=== PATIENT | female | born 1940 | race Caucasian/White ===

== ENCOUNTER 2017-07-14 11:30 | Inpatient (IN) | payer MEDICARE, MEDICAID ==
[2017-07-25] MEDS ORDERED: Buffered Lidocaine 0.9% SYRIN* 5 ML/SYR SYRINGE INTRADERM ONE (10:56)
[2017-07-26] MEDS ORDERED: Famotidine IV* 10 MG/ML 2 ML (20 mg) IV ONE (06:00)
[2017-07-26] MEDS ORDERED: Dexamethasone IV* 4 MG/ML 1 ML (4 MG) IV SLOW PU ONE (06:00)
[2017-07-26] MEDS ORDERED: Famotidine IV* 10 MG/ML 2 ML (20 mg) ONE (12:58)
[2017-07-26] MEDS ORDERED: Dexamethasone IV* 4 MG/ML 1 ML (4 MG) ONE (12:58)
[2017-07-26] MEDS ORDERED: ceFAZolin 2 GM PREMIX (*) 2 GM/50 ML BAG IVPB ONE (12:58)
[2017-07-26] MEDS ORDERED: Buffered Lidocaine 0.9% SYRIN* 5 ML/SYR SYRINGE ONE (12:58)
[2017-07-26] MEDS ORDERED: KETAMINE HCL* 50 MG/ML 10 ML VIAL ONE (16:36)
[2017-07-26] MEDS ORDERED: Midazolam* 1 MG/ML 10 ML VIAL (10 MG) ONE (16:37)
[2017-07-26] MEDS ORDERED: Morphine PF AMP (0.5MG/ML)* 5 MG/10 ML AMP ONE (16:37)
[2017-07-26] MEDS ORDERED: Propofol* 10 MG/ML 20 ML BTL IV PUSH ONE (16:47)
[2017-07-26] MEDS ORDERED: Ondansetron INJ* 2 MG/ML VIAL ONE (16:47)
[2017-07-26] MEDS ORDERED: Polyethylene Glycol 3350* 17 GM PACKET PO PRN (17:33)
[2017-07-26] MEDS ORDERED: Magnesium Hydroxide LIQ* 30 ML UDC PO PRN (17:33)
[2017-07-26] MEDS ORDERED: Bupivacaine 0.5% SDV PF* 10-30ML VIAL INJ ONE (18:14)
[2017-07-26] MEDS ORDERED: Lidocaine 2% PF * 5 ML VIAL ONE (18:25)
[2017-07-26] MEDS ORDERED: Naloxone* 0.4 MG/ML 1 ML VIAL IV PRN ×2 (18:27)
[2017-07-26] MEDS ORDERED: DiMENhydriNATE IV* 50 MG/ML VIAL IV PUSH PRN (18:27)
[2017-07-26] MEDS ORDERED: Ondansetron INJ* 2 MG/ML VIAL IV PRN (18:27)
[2017-07-26] MEDS ORDERED: Nalbuphine* 20 MG/ML 1 ML VIAL IV PRN ×2 (18:27)
[2017-07-26] MEDS ORDERED: oxyCODONE/Acetamin 5/325 MG* TAB PO PRN (18:27)
[2017-07-26] MEDS ORDERED: Atropine 1MG/ML INJ* 1 ML VIAL ONE (18:34)
--- NOTE | 2017-07-26 19:58 | RAD ---
Indication: RIGHT total hip replacement. Comparison: July 03, 2017 Technique: Crosstable lateral RIGHT hip 1824 hours REPORT AND IMPRESSION: Test fit femur component/reamer in place. Acetabular component with fixation screw in place. No fracture evident. Soft tissue edema and emphysema.
--- NOTE | 2017-07-26 21:36 | RAD ---
Indication: Postop RIGHT hip replacement. Comparison: Intraoperative exam of the same date. Technique: Low AP pelvis and AP and stable lateral views RIGHT hip. Low AP pelvis view repeated at 2035 hours. Report: RIGHT total hip replacement in place with normal alignment. No periprosthetic fracture evident. Surrounding soft tissue edema and subcutaneous emphysema. Lateral cutaneous gris. IMPRESSION: Unremarkable immediate postop appearance of the RIGHT total hip replacement.
[2017-07-26] MEDS: Docusate CAP* 100 MG PO SCH (22:28)
[2017-07-26] MEDS: Magnesium Hydroxide LIQ* 30 ML UDC PO SCH (22:28)
[2017-07-27] MEDS: ceFAZolin 1 GM VIAL(*) 1 GM in NS 0.9% 50 ML* 50 ML IVPB SCH ×3 (01:13→17:13)
[2017-07-27] MEDS: Metoprolol Succinate XL TAB* 50 MG PO SCH ×3 (01:16→21:32)
[2017-07-27] MEDS: Latanoprost 0.005%* 2.5 ml BTL BOTH EYES SCH ×2 (01:17→17:14)
[2017-07-27] MEDS: Dorzolamide/Timolol OPTH (NF) 10 ML BOT BOTH EYES SCH ×2 (01:17→07:58)
[2017-07-27] MEDS: Potassium Chlor TAB* 20 MEQ TAB.ER PO SCH ×3 (01:17→21:30)
[2017-07-27] MEDS: Cyanocobalamin TAB* 500 MCG PO SCH ×2 (01:19→17:10)
[2017-07-27 05:20] LABS: Hematocrit 27 % (35-47); Hemoglobin 9.3 g/dl (12.0-16.0); Mean Platelet Volume 9 um3 (7.4-10.4); Platelet Count 163 10^3/ul (150-450)
[2017-07-27 05:27] LABS: INR 1.19 (0.77-1.02)
[2017-07-27 05:52] LABS: EGFR Non-African American 42.7 (>60)
[2017-07-27] MEDS: Docusate CAP* 100 MG PO SCH ×2 (07:55→21:30)
[2017-07-27] MEDS: amLODIPine TAB* 5 MG PO SCH (07:55)
[2017-07-27] MEDS: Magnesium Hydroxide LIQ* 30 ML UDC PO SCH ×2 (07:56→21:30)
[2017-07-27] MEDS: Cilostazol TAB* 100 MG PO SCH ×2 (08:04→21:31)
[2017-07-27] MEDS: Multivitamins/Minerals TAB PO SCH (08:04)
[2017-07-27] MEDS ORDERED: Ondansetron INJ* 2 MG/ML VIAL IV PRN (09:00)
[2017-07-27] MEDS ORDERED: Morphine INJ* 4 MG/ML 1 ML CARPUJECT IV PRN (09:00)
[2017-07-27] MEDS ORDERED: diPHENhydraMINE IV* 50 MG/ML 1 ml VIAL (BENADRYL) IV PRN (09:00)
[2017-07-27] MEDS ORDERED: Ondansetron TAB* 4 MG PO PRN (09:00)
[2017-07-27] MEDS ORDERED: oxyCODONE TAB* 5 MG TAB PO PRN (09:00)
[2017-07-27] MEDS: oxyCODONE/Acetamin 5/325 MG* TAB PO PRN ×3 (12:50→21:32)
--- NOTE | 2017-07-27 13:09 | PN ---
Progress Note - Progress Note Date of Service: 07/27/17 SOAP: Subjective: []Patient seen OOB in chair. Pain is well controlled. Denies CP, SOB, nausea. Objective: []General: Well appearing, NAD RLE: dressing cdi. DF/PF intact. DP/PT 2+ BL LE: calves supple and nontender withotu erythema, edema or palpable cords Vital Signs Temp 97.0 F 07/27/17 11:48 Pulse 68 07/27/17 11:48 Resp 16 07/27/17 12:50 BP 106/46 07/27/17 11:48 Pulse Ox 99 07/27/17 11:48 Intake & Output 07/26/17 07/27/17 07/27/17 18:59 06:59 18:59 Intake Total 50 2205 1256 Output Total 2125 Balance 50 80 1256 Weight 107 lb 6.4 oz Intake: IV Fluids 50 1855 1056 ABX - CEFAZOLIN 55 55 LR 1001 NS 50ML, Cefazolin 2G 50 lr 1800 Oral 350 200 Output: Chan 1925 Estimated Blood Loss 200 Laboratory Last Values Hgb 9.3 g/dl (12.0-16.0) L 07/27/17 05:10 Hct 27 % (35-47) L 07/27/17 05:10 Plt Count 163 10^3/ul (150-450) 07/27/17 05:10 MPV 9 um3 (7.4-10.4) 07/27/17 05:10 INR (Anticoag Therapy) 1.19 (0.77-1.02) H 07/27/17 05:10 Sodium 143 mmol/L (133-145) 07/27/17 05:10 Potassium 3.6 mmol/L (3.5-5.0) 07/27/17 05:10 Chloride 118 mmol/L (101-111) H 07/27/17 05:10 Carbon Dioxide 19 mmol/L (22-32) L 07/27/17 05:10 Anion Gap 6 mmol/L (2-11) 07/27/17 05:10 BUN 20 mg/dL (6-24) 07/27/17 05:10 Creatinine 1.23 mg/dL (0.51-0.95) H 07/27/17 05:10 Est GFR ( Amer) 54.9 (>60) 07/27/17 05:10 Est GFR (Non-Af Amer) 42.7 (>60) 07/27/17 05:10 BUN/Creatinine Ratio 16.3 (8-20) 07/27/17 05:10 Glucose 174 mg/dL (70-100) H 07/27/17 05:10 Calcium 8.3 mg/dL (8.6-10.3) L 07/27/17 05:10 Assessment: []s/p right total hip arthroplasty 07/26/17, Dr Pike Plan: []WBAT PT/OT Eliquis for DVT prophylaxis <Jannet Aguilar - Last Filed: 07/27/17 13:07> - Progress Note SOAP: Subjective: Feels comfortable. Wants to go home and not to rehab, but seems to be willing to accept either. Acknowledges that she was hallucinating in the PACU with visions of dark, threatening things hanging from the ceiling. Objective: NAD. Comfortable appearing. RLE - dressing intact - NVID xrays- components well placed, no fracture Laboratory Tests 07/27/17 07/27/17 05:10 05:10 Hct 27 L Creatinine 1.23 H Assessment: POD 1 R KIA Plan: - Eliquis - Pletal as per pre-op - WBAT, OOB, PT - Dispo planning - Pain control <Miguel Angel Pike - Last Filed: 07/27/17 22:35>
[2017-07-27] MEDS: Apixaban* 2.5 MG TAB PO SCH (17:10)
[2017-07-27] MEDS: Morphine INJ* 2 MG/ML 1 ML SYRINGE (TWO MG - NEW SYRINGE VERSION) IV PRN ×2 (17:30→23:11)
[2017-07-27] MEDS: Timolol 0.5% OPTH.SOL* BTL BOTH EYES SCH (21:28)
[2017-07-27] MEDS: Dorzolamide 2% OPTH (NF) 10 ML BTL BOTH EYES SCH (21:29)
[2017-07-28] MEDS: oxyCODONE/Acetamin 5/325 MG* TAB PO PRN ×6 (01:33→22:37)
[2017-07-28 06:00] LABS: Hematocrit 23 % (35-47); Hemoglobin 7.6 g/dl (12.0-16.0); Mean Platelet Volume 9 um3 (7.4-10.4); Platelet Count 121 10^3/ul (150-450)
[2017-07-28 06:18] LABS: INR 1.26 (0.77-1.02)
--- NOTE | 2017-07-28 10:39 | PN ---
Progress Note - Progress Note Date of Service: 07/28/17 SOAP: Subjective: POD #2 Right KIA. Doing ok, c/o pain. Denies calf pain, CP/SOB Objective: Vitals: Temp Pulse Resp BP Pulse Ox 98.9 F 84 16 139/63 99 07/28/17 07:48 07/28/17 07:48 07/28/17 09:58 07/28/17 07:48 07/28/17 07:48 Gen: A&Ox3, NAD at rest Right Hip: Incision C/D/I, minimal ecchymosis and edema, no surrounding erythema. Thigh soft, mild ttp. +f/e at knee, ankle and MTPs, N/V intact Labs: Laboratory Results - last 24 hr 07/28/18 07/28/17 05:34 05:34 Hgb 7.6 L Hct 23 L Plt Count 121 L MPV 9 INR (Anticoag Therapy) 1.26 H Assessment: POD #2 Right KIA Plan: Pt lives alone with no family around, PT concerned that pt is not able to go home. PMRU consult placed for short term rehab Cont pain medication Cont PT/OT Cont Eliquis for DVT ppx
[2017-07-28] MEDS: Magnesium Hydroxide LIQ* 30 ML UDC PO SCH ×2 (10:55→22:26)
[2017-07-28] MEDS: Cilostazol TAB* 100 MG PO SCH ×2 (10:56→22:22)
[2017-07-28] MEDS: Metoprolol Succinate XL TAB* 50 MG PO SCH ×2 (10:56→22:23)
[2017-07-28] MEDS: amLODIPine TAB* 5 MG PO SCH (10:56)
[2017-07-28] MEDS: Apixaban* 2.5 MG TAB PO SCH ×2 (10:56→17:01)
[2017-07-28] MEDS: Docusate CAP* 100 MG PO SCH ×2 (10:57→22:25)
[2017-07-28] MEDS: Potassium Chlor TAB* 20 MEQ TAB.ER PO SCH ×2 (10:58→22:24)
[2017-07-28] MEDS: Multivitamins/Minerals TAB PO SCH (10:58)
[2017-07-28] MEDS: Timolol 0.5% OPTH.SOL* BTL BOTH EYES SCH ×2 (10:59→22:22)
[2017-07-28] MEDS: Dorzolamide 2% OPTH (NF) 10 ML BTL BOTH EYES SCH ×2 (11:00→22:21)
[2017-07-28] MEDS: Cyanocobalamin TAB* 500 MCG PO SCH (17:01)
[2017-07-28] MEDS: Latanoprost 0.005%* 2.5 ml BTL BOTH EYES SCH (17:02)
--- NOTE | 2017-07-28 20:26 | OP ---
OPERATIVE REPORT: DATE OF OPERATION: 07/26/17 DATE OF : 44 SURGEON: Miguel Angel Pike MD ASSISTANTS: 1. Amberly Velarde MD 2. GILDARDO Madden Due to the nature of this procedure, femoral neck fracture, subacute, early malunion in a relatively young physiologically active patient, a second attending and physician technical support assistant were required for positioning, instrumentation assistance, and closure. ANESTHESIOLOGIST: Bakari Gardner MD. ANESTHESIA: Spinal anesthesia. PRE-OP DIAGNOSIS: Right femoral neck fracture, subacute, incipient malunion. POST-OP DIAGNOSIS: Right femoral neck fracture, subacute, incipient malunion. OPERATIVE PROCEDURE: Right total hip arthroplasty for femoral neck fracture, early malunion, subacute. IV FLUIDS: 2800 cc crystalloid. ANTIBIOSIS: Ancef 2 g IV. ESTIMATED BLOOD LOSS: Less than 100 cc. URINE OUTPUT: 2000 cc. COMPLICATIONS: None. SPECIMEN: Femoral head, right. IMPLANTS: Accolade TMZF hip stem, 132 degree neck. A 32 mm plus 0 mm femoral head, ceramic, Biolox delta. Trident 0 degrees polyethylene insert 32 mm. Tritanium hemispherical cluster hole shell size 50 mm. One cancellous bone screw 6.5 mm in diameter, 20 mm in length. INDICATIONS FOR PROCEDURE: The patient is a 76-year-old woman who lives alone, who walks everywhere and does not own or operate a vehicle, and who likes to bike, who presented to my clinic office on 07/06/17, reporting a fall on , with right hip injury diagnosed the day before, on approximately 07/05/17. The patient states that on 05/04/17, she was walking in [facility]. She tripped and fell on her right hip. She had severe pain. The patient was somehow able to walk home. She was in excruciating pain while walking home. She did not have her purse and so was not able to pay for a ride home according to her. When she got home, she was in severe pain. She states she spent most of her time in bed for weeks. Getting out of bed to go to bathroom was very painful. The patient was given crutches by a neighbor and she used those. The patient reported that several weeks prior, approximately 1 week prior to her 07/06/17 clinic visit with me, she just started being able to put some weight through the right lower extremity. She stated that her pain in the right hip had improved but it still bothered her significantly with weightbearing and with range of motion. The patient had seen Dr. 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 The patient described hip pain, had x-rays obtained that showed a right femoral neck fracture and so the patient was referred to my clinic. The patient states that prior to her injury, she did not use a cane or a walker. Her automobile stopped working 10 years ago and she did not repair it or get a new one, so she walks everywhere and occasionally bicycles. She walks to stores and to all her doctors' appointments. 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 She is on Pletal. She reports an infection postoperatively after a distant past surgery, gastrointestinal. She also reports a distant past history of pulmonary emboli postoperatively, only once. No hematologic workup was known of by the patient. X-rays from June 2017, demonstrated a displaced right femoral neck fracture. Clear posterior displacement of the femoral neck and posterior apex angular deformity of the femoral neck fracture. High fracture, subcapital. Clearly not impacted but angulated and displaced. I offered the patient urgent to emergent surgery, with a direct admission to the hospital with hip arthroplasty performed that day or next day. The patient declined this. I also offered elective surgery. Given that the patient was now 2 months status post hip fracture and had already regained much of her mobility, I did not think the 48-hour window for hip fracture surgery applied. She was certainly at a decreased risk of pneumonia, bedsores, blood clots given that she was mobile, using crutches, bearing some weight through the right lower extremity. She opted for elective surgery. It should be noted that the patient actually had passive range of motion 0 to 95 degrees of flexion in the office, quite impressively, 50 degrees of external rotation but the patient could not even internal rotate to neutral. Inconsistent pain with log roll and ranges of motion. I initially consented and signed the patient out for bipolar hip hemiarthroplasty. However, given her high activity level for a 76-year-old, walking everywhere, and the newer studies that show higher happiness and functional ratings of total hip arthroplasty versus bipolar hip hemiarthroplasty , I decided to perform a total hip arthroplasty procedure. I consented the patient for that procedure. I had my colleague, Dr. Amberly Velarde, assist me as well as a physician technical support assistant. Preoperatively, I spoke with the patient about the risks and potential complications of surgery. These include bleeding, infection, nerve or blood vessel injury, blood clot, hip pain, stiffness, prosthetic dislocation, fracture , component failure. The patient opted for surgery. DESCRIPTION OF PROCEDURE: In preoperative holding, the patient signed a written consent form. Operative extremity was marked in preoperative holding. The patient was taken back to the operating room and placed on operating room table. Dr. Bakari Gardner, performed a spinal anesthetic. A Chan was placed. The patient was placed into the lateral decubitus position with the right side up. Axillary roll was placed. The patient was on a pegboard and pegs were placed. The table was placed into a small amount of Trendelenburg. The right lower extremity was prepped with chlorhexidine and then ChloraPrep. The right hip was draped. Surgical time-out was performed. A standard skin incision was made for the posterior approach to the hip. This was centered about the proximal tip of the greater tuberosity, half proximal and half distal to this, just posterior to the midline of the access to the femoral shaft. The knife blade was switched. Dissection down to the iliotibial band and the gluteus brenton fascia. This was cleared off. ITP and gluteus brenton fascia was incised. Gluteus brenton muscles were spread in the orientation of the running in their fibers. The hip was extended and internally rotated. Fascia was removed from the posterior aspect of the greater trochanter of the hip. Appropriate retractors were placed. External rotators were identified. A tagging stitch with #5 Ethibond was placed in the piriformis. Piriformis was released along with the remainder of the external rotators more inferiorly. A second tagging stitch with #5 Ethibond, figure-of- eight stitch was placed in the external rotators. The posterior capsule of the hip was then incised off the femur. A proximal posterior longitudinal cut was also made in the capsule. Two ywmpiu-eh-gnchy stitches using Ethibond #5 suture were used to tag and retract the posterior capsule. Hemostasis was achieved. Not much bleeding during the case. The right hip was dislocated. Deformity of the femoral head and neck were noted , but the fracture site was stable with clearly some amount of healing in it in a malunited position. Flexed and internally rotated the hip. Consulted our preoperative templating for this case. Preoperative templating had revealed a likely size 3.5 femoral component with a 132 degree neck, 15 mm cup and a neutral or minus neck length. We made a femoral neck cut, approximately 1 cm proximal to the lesser trochanter , as per our templating. Oscillating saw was used. A femoral head and some of neck were removed. They were sized on a back table. Retractors were then placed around the acetabulum. Exposure was excellent as the patient had a thin habitus. Labrum was removed with a deep knife. Acetabulum was reamed. No large osteophytes were present. Soft tissue pulvinar was removed. We reamed to the medial wall of the cotyloid notch. Our last reaming was to 49 mm. A wall thickness was still excellent circumferentially. A bite and stitch were excellent. We reamed with approximately 40 degrees of abduction and 25 degrees of flexion. We placed a Titanium cup, 50 mm in size, 1 mm larger than our last reaming size. Fit was excellent. It went all the way down. One screw was placed into the posterosuperior quadrant into bone. Bite of the screw and bone was middling. It was clearly placed all within bone, however. Placed a trial liner in the cup and returned to the femur. A manual reamer, canal finder was placed. Then broaches were placed, lateralizing slightly, to a progressively larger size until a broach of size 4.5. Fit appeared excellent , tight. We then trialed with a trial head and neck and liked our stability and length. Irrigation again. We then placed our final stem, Accolade, 4.5 in size, 132 neck. It should be noted that between the trialing and the placement of out final femoral prosthesis, we brought the extra imaging into the room and obtained an AP pelvis that showed the position of our implants. We were happy with the position of our implants and our length. After the final femoral implant had been placed, we trialed with a 32 head and a minus neck as well as a neutral neck. We liked more of the stability and the length of the implant with a neutral neck. We placed the final ceramic head and liner. Irrigation. We drilled 2 holes in the posterior aspect of the greater trochanter and closed our posterior capsule and then our external rotators with the tagging stitches placed earlier. Irrigation. Closure of the gluteus brenton and iliotibial band fascia with gqbusc-[id number]-pahen stitches using Vicryl 0 suture. Closure of the subcutaneous tissue with buried simple stitches using Vicryl 2-0 suture. Closure of the skin with gris. Xeroform, 4x4's, ABD's, foam tape. Abduction pillow placed. The patient was converted to the supine position and transferred to the PACU. DISPOSITION: The patient was admitted postoperatively for pain control, physical therapy, advance diet as tolerated and medical management. The patient was to receive Eliquis 2.5 mg p.o. b.i.d. starting the morning following surgery. IV and oral pain medications. Posterior total hip precautions. Weightbearing as tolerated and out of bed with physical therapy. The patient will follow up with me in clinic approximately 14 days postoperatively for wound check and x-rays. The patient obtained x-rays in the PACU which showed no fracture, excellent length and position of hardware. [id number]/[facility] #: [id number] RIZWANA
[2017-07-29] MEDS: oxyCODONE/Acetamin 5/325 MG* TAB PO PRN ×4 (04:20→21:12)
[2017-07-29 06:28] LABS: Hematocrit 23 % (35-47); Hemoglobin 7.8 g/dl (12.0-16.0); Mean Platelet Volume 9 um3 (7.4-10.4); Platelet Count 127 10^3/ul (150-450)
[2017-07-29 06:32] LABS: INR 1.31 (0.77-1.02)
[2017-07-29] MEDS: Magnesium Hydroxide LIQ* 30 ML UDC PO SCH ×2 (09:16→21:15)
[2017-07-29] MEDS: Dorzolamide 2% OPTH (NF) 10 ML BTL BOTH EYES SCH ×2 (09:17→21:19)
[2017-07-29] MEDS: Timolol 0.5% OPTH.SOL* BTL BOTH EYES SCH ×2 (09:18→21:18)
[2017-07-29] MEDS: Cilostazol TAB* 100 MG PO SCH ×2 (09:19→21:11)
[2017-07-29] MEDS: Metoprolol Succinate XL TAB* 50 MG PO SCH ×2 (09:19→21:11)
[2017-07-29] MEDS: amLODIPine TAB* 5 MG PO SCH (09:19)
[2017-07-29] MEDS: Potassium Chlor TAB* 20 MEQ TAB.ER PO SCH ×2 (09:20→21:12)
[2017-07-29] MEDS: Apixaban* 2.5 MG TAB PO SCH ×2 (09:20→16:58)
[2017-07-29] MEDS: Docusate CAP* 100 MG PO SCH ×2 (09:20→21:12)
[2017-07-29] MEDS: Multivitamins/Minerals TAB PO SCH (09:20)
--- NOTE | 2017-07-29 11:17 | PN ---
Progress Note - Progress Note Date of Service: 07/29/17 SOAP: Subjective: Pain decreased. She is more comfortable with going to rehab. No bowel movement yet. (History of loose stools, "short bowel syndrome") Objective: NAD Abdomen - soft, though slightly distended per patient, non-tender RLE - inc c/d/i - NVID Selected Entries 07/29/17 07:34 Temperature 98.7 F Pulse Rate 75 Respiratory 16 Rate Blood Pressure 117/52 (mmHg) O2 Sat by Pulse 95 Oximetry Laboratory Tests 07/27/17 07/28/17 07/29/17 05:10 05:34 06:17 Hct 27 L 23 L 23 L Assessment: POD 3 R KIA Plan: - Dispo planning, to rehab - f/u with me in clinic ~ 14 days postop - Keep wound covered for 7 days or until dry, whichever is longer - Keep following H/H - Eliquis - Pain control - Continue bowel regiment - PT, OOB, WBAT - Posterior hip precautions
[2017-07-29] MEDS ORDERED: Bisacodyl EC TAB* 5 MG PO PRN (11:18)
[2017-07-29] MEDS: Cyanocobalamin TAB* 500 MCG PO SCH (17:00)
[2017-07-29] MEDS: Latanoprost 0.005%* 2.5 ml BTL BOTH EYES SCH (17:00)
[2017-07-30] MEDS: oxyCODONE/Acetamin 5/325 MG* TAB PO PRN ×4 (02:07→21:51)
[2017-07-30 05:47] LABS: Hematocrit 23 % (35-47); Hemoglobin 7.7 g/dl (12.0-16.0); Mean Platelet Volume 9 um3 (7.4-10.4); Platelet Count 154 10^3/ul (150-450)
[2017-07-30 05:53] LABS: INR 1.47 (0.77-1.02)
[2017-07-30] MEDS: Dorzolamide 2% OPTH (NF) 10 ML BTL BOTH EYES SCH ×2 (09:27→21:52)
[2017-07-30] MEDS: Timolol 0.5% OPTH.SOL* BTL BOTH EYES SCH ×2 (09:27→21:52)
[2017-07-30] MEDS: Apixaban* 2.5 MG TAB PO SCH ×2 (09:29→18:01)
[2017-07-30] MEDS: Multivitamins/Minerals TAB PO SCH (09:29)
[2017-07-30] MEDS: Cilostazol TAB* 100 MG PO SCH ×2 (09:29→21:51)
[2017-07-30] MEDS: Docusate CAP* 100 MG PO SCH ×2 (09:29→21:46)
[2017-07-30] MEDS: Potassium Chlor TAB* 20 MEQ TAB.ER PO SCH ×2 (09:29→21:54)
[2017-07-30] MEDS: amLODIPine TAB* 5 MG PO SCH (09:29)
[2017-07-30] MEDS: Metoprolol Succinate XL TAB* 50 MG PO SCH ×2 (09:29→21:52)
[2017-07-30] MEDS: Magnesium Hydroxide LIQ* 30 ML UDC PO SCH ×2 (09:36→21:47)
--- NOTE | 2017-07-30 12:02 | PN ---
Progress Note - Progress Note Date of Service: 07/30/17 SOAP: Subjective: [Pt was seen this am sitting up in bed. She states that she is worried about her cats at home that her neighbor is currently feeding for her. She is thinking of asking him to continue in order to help her feel better about going to a rehab facility. She currently states that she only has pain when she is moving. She denies any chest pain, sob, n/v. ] Objective: [General: A&Ox3 MSK: RLE: Pts dressing is c/d/i. Able to df/pf. NVI Vital Signs Temp 98.0 F 07/30/17 07:15 Pulse 79 07/30/17 07:15 Resp 18 07/30/17 08:31 BP 120/52 07/30/17 09:34 Pulse Ox 100 07/30/17 07:15 Intake & Output 07/29/17 07/30/17 07/30/17 18:59 06:59 18:59 Intake Total 720 450 Output Total 800 800 Balance -80 -350 Intake: Oral 720 450 Output: Urine 800 800 Other: Date of Last Bowel 07/30/17 Movement # Bowel Movements 1 Estimated Stool Amount Large Assessment: POD 4 R KIA Plan: Dispo planning, to rehab on monday Eliquis for anticoagulation continue pain control Continue bowel regiment PT, OOB, WBAT Posterior hip precautions
[2017-07-30] MEDS: Latanoprost 0.005%* 2.5 ml BTL BOTH EYES SCH (18:00)
[2017-07-30] MEDS: Cyanocobalamin TAB* 500 MCG PO SCH (18:01)
[2017-07-31] MEDS: Morphine INJ* 2 MG/ML 1 ML SYRINGE (TWO MG - NEW SYRINGE VERSION) IV PRN (04:53)
[2017-07-31 06:09] LABS: Hematocrit 23 % (35-47); Hemoglobin 7.6 g/dl (12.0-16.0); Mean Platelet Volume 8 um3 (7.4-10.4); Platelet Count 192 10^3/ul (150-450)
[2017-07-31 06:13] LABS: INR 1.84 (0.77-1.02)
[2017-07-31] MEDS: oxyCODONE/Acetamin 5/325 MG* TAB PO PRN ×3 (09:35→19:55)
[2017-07-31] MEDS: Cilostazol TAB* 100 MG PO SCH ×2 (09:37→21:54)
[2017-07-31] MEDS: Apixaban* 2.5 MG TAB PO SCH ×2 (09:37→17:16)
[2017-07-31] MEDS: Metoprolol Succinate XL TAB* 50 MG PO SCH ×2 (09:38→21:54)
[2017-07-31] MEDS: amLODIPine TAB* 5 MG PO SCH (09:38)
[2017-07-31] MEDS: Docusate CAP* 100 MG PO SCH ×2 (09:39→21:49)
[2017-07-31] MEDS: Potassium Chlor TAB* 20 MEQ TAB.ER PO SCH ×2 (09:39→21:53)
[2017-07-31] MEDS: Magnesium Hydroxide LIQ* 30 ML UDC PO SCH ×2 (09:39→21:49)
[2017-07-31] MEDS: Multivitamins/Minerals TAB PO SCH (09:40)
[2017-07-31] MEDS: Timolol 0.5% OPTH.SOL* BTL BOTH EYES SCH ×2 (09:43→21:52)
[2017-07-31] MEDS: Dorzolamide 2% OPTH (NF) 10 ML BTL BOTH EYES SCH ×2 (09:43→21:51)
--- NOTE | 2017-07-31 14:18 | PN ---
Progress Note - Progress Note Date of Service: 07/31/17 SOAP: Subjective: [] Patient seen at bedside. She is feeling frusterated, tired and dizzy. Denies SOB , chest pain or leg numbness. Objective: [] Vital Signs Temp 98.6 F 07/31/17 11:23 Pulse 78 07/31/17 11:23 Resp 16 07/31/17 14:05 BP 100/43 07/31/17 11:23 Pulse Ox 98 07/31/17 11:23 Intake & Output 07/30/17 07/31/17 07/31/17 18:59 06:59 18:59 Intake Total 900 850 520 Output Total 300 0 Balance 600 850 520 Intake: Oral 900 850 520 Output: Urine 300 0 Other: Estimated Void Large Large Medium # Bowel Movements 1 Estimated Stool Amount Large # Voids 3 1 Laboratory Last Values Hgb 7.6 g/dl (12.0-16.0) L 07/31/17 05:57 Hct 23 % (35-47) L 07/31/17 05:57 Plt Count 192 10^3/ul (150-450) 07/31/17 05:57 MPV 8 um3 (7.4-10.4) 07/31/17 05:57 INR (Anticoag Therapy) 1.84 (0.77-1.02) H 07/31/17 05:57 Sodium 143 mmol/L (133-145) 07/27/17 05:10 Potassium 3.6 mmol/L (3.5-5.0) 07/27/17 05:10 Chloride 118 mmol/L (101-111) H 07/27/17 05:10 Carbon Dioxide 19 mmol/L (22-32) L 07/27/17 05:10 Anion Gap 6 mmol/L (2-11) 07/27/17 05:10 BUN 20 mg/dL (6-24) 07/27/17 05:10 Creatinine 1.23 mg/dL (0.51-0.95) H 07/27/17 05:10 Est GFR ( Amer) 54.9 (>60) 07/27/17 05:10 Est GFR (Non-Af Amer) 42.7 (>60) 07/27/17 05:10 BUN/Creatinine Ratio 16.3 (8-20) 07/27/17 05:10 Glucose 174 mg/dL (70-100) H 07/27/17 05:10 Calcium 8.3 mg/dL (8.6-10.3) L 07/27/17 05:10 Blood Type O Positive 07/31/17 05:57 Antibody Screen Negative 07/31/17 05:57 Crossmatch See Detail 07/31/17 05:57 General: Appears fatigued. Sitting at bed's edge, NAD. Calm and coopertive RLE: Dressing changed. Incision CDI without surrounding erythema or edema. DP 2+ BL LE: calves supple and nontender without erythema, edema or palpable cords. Assessment: []POD 5 R KIA Plan: Dispo planning, to rehab when a bed becomes available Eliquis for anticoagulation continue pain control Continue bowel regiment PT, OOB, WBAT Hip precautions 1 unit PRBC given
[2017-07-31] MEDS: Cyanocobalamin TAB* 500 MCG PO SCH (17:16)
[2017-07-31] MEDS: Latanoprost 0.005%* 2.5 ml BTL BOTH EYES SCH (17:17)
[2017-08-01] MEDS: oxyCODONE/Acetamin 5/325 MG* TAB PO PRN ×3 (01:20→13:43)
[2017-08-01] MEDS: Metoprolol Succinate XL TAB* 50 MG PO SCH (07:59)
[2017-08-01] MEDS: Apixaban* 2.5 MG TAB PO SCH ×2 (07:59→17:15)
[2017-08-01] MEDS: Cilostazol TAB* 100 MG PO SCH (07:59)
[2017-08-01] MEDS: Dorzolamide 2% OPTH (NF) 10 ML BTL BOTH EYES SCH (08:00)
[2017-08-01] MEDS: amLODIPine TAB* 5 MG PO SCH (08:00)
[2017-08-01] MEDS: Timolol 0.5% OPTH.SOL* BTL BOTH EYES SCH (08:00)
[2017-08-01] MEDS: Multivitamins/Minerals TAB PO SCH (08:00)
[2017-08-01] MEDS: Potassium Chlor TAB* 20 MEQ TAB.ER PO SCH (08:00)
[2017-08-01] MEDS: Magnesium Hydroxide LIQ* 30 ML UDC PO SCH (08:02)
[2017-08-01] MEDS: Docusate CAP* 100 MG PO SCH (08:02)
[2017-08-01 08:58] LABS: Hematocrit 24 % (35-47); Hemoglobin 8.1 g/dl (12.0-16.0)
--- NOTE | 2017-08-01 10:31 | PN ---
Progress Note - Progress Note Date of Service: 08/01/17 SOAP: Subjective: []Patient seen at bedside. PRBC resolved her fatigue and dizziness yesterday. Denies R hip pain, SOB, CP. Objective: []General: Appears well. NAD. Calm and cooperative RLE: Dressing changed. Incision CDI without surrounding erythema or edema. DP 2+ BL LE: calves supple and nontender without erythema, edema or palpable cords. Laboratory Last Values Hgb 8.1 g/dl (12.0-16.0) L 08/01/17 08:43 Hct 24 % (35-47) L 08/01/17 08:43 Plt Count 192 10^3/ul (150-450) 07/31/17 05:57 MPV 8 um3 (7.4-10.4) 07/31/17 05:57 INR (Anticoag Therapy) 1.84 (0.77-1.02) H 07/31/17 05:57 Sodium 143 mmol/L (133-145) 07/27/17 05:10 Potassium 3.6 mmol/L (3.5-5.0) 07/27/17 05:10 Chloride 118 mmol/L (101-111) H 07/27/17 05:10 Carbon Dioxide 19 mmol/L (22-32) L 07/27/17 05:10 Anion Gap 6 mmol/L (2-11) 07/27/17 05:10 BUN 20 mg/dL (6-24) 07/27/17 05:10 Creatinine 1.23 mg/dL (0.51-0.95) H 07/27/17 05:10 Est GFR ( Amer) 54.9 (>60) 07/27/17 05:10 Est GFR (Non-Af Amer) 42.7 (>60) 07/27/17 05:10 BUN/Creatinine Ratio 16.3 (8-20) 07/27/17 05:10 Glucose 174 mg/dL (70-100) H 07/27/17 05:10 Calcium 8.3 mg/dL (8.6-10.3) L 07/27/17 05:10 Blood Type O Positive 07/31/17 05:57 Antibody Screen Negative 07/31/17 05:57 Crossmatch See Detail 07/31/17 05:57 Vital Signs Temp 98.1 F 08/01/17 07:55 Pulse 80 08/01/17 07:55 Resp 16 08/01/17 08:00 BP 133/62 08/01/17 07:55 Pulse Ox 97 08/01/17 07:55 Intake & Output 07/31/17 08/01/17 08/01/17 18:59 06:59 18:59 Intake Total 912 500 Output Total 0 Balance 912 500 Intake: Oral 520 500 Packed Cells 392 Output: Urine 0 Other: Estimated Void Medium Medium # Bowel Movements 1 Estimated Stool Amount Large # Voids 1 1 Assessment: []POD 6 R KIA Plan: Dispo planning, to rehab when a bed becomes available Eliquis for anticoagulation continue pain control Continue bowel regiment PT, OOB, WBAT Hip precautions
[2017-08-01] MEDS: Latanoprost 0.005%* 2.5 ml BTL BOTH EYES SCH (17:15)
[2017-08-01] MEDS: Cyanocobalamin TAB* 500 MCG PO SCH (17:15)
[2017-08-02] MEDS: Potassium Chlor TAB* 20 MEQ TAB.ER PO SCH ×2 (00:29→09:37)
[2017-08-02] MEDS: Metoprolol Succinate XL TAB* 50 MG PO SCH ×2 (00:30→09:37)
[2017-08-02] MEDS: Dorzolamide 2% OPTH (NF) 10 ML BTL BOTH EYES SCH ×2 (00:30→09:53)
[2017-08-02] MEDS: Cilostazol TAB* 100 MG PO SCH ×2 (00:30→09:37)
[2017-08-02] MEDS: Timolol 0.5% OPTH.SOL* BTL BOTH EYES SCH ×2 (00:30→09:53)
[2017-08-02] MEDS: oxyCODONE/Acetamin 5/325 MG* TAB PO PRN ×3 (00:35→13:56)
[2017-08-02] MEDS: Magnesium Hydroxide LIQ* 30 ML UDC PO SCH ×2 (00:36→09:28)
[2017-08-02] MEDS: Docusate CAP* 100 MG PO SCH ×2 (00:36→09:28)
[2017-08-02 09:29] VITALS: BP 134/58
[2017-08-02] MEDS ORDERED: Loperamide CAP* 2 MG PO PRN (09:31)
--- NOTE | 2017-08-02 09:35 | PN ---
Progress Note - Progress Note Date of Service: 08/02/17 SOAP: Subjective: []Patient seen at bedside. She is very frustrated by her slow progress and continued right hip pain. She did have diarrhea overnight, but no abdominal pain , fever or chills. Denies CP or SOB. Objective: [] Vital Signs Temp 98.9 F 08/02/17 07:19 Pulse 80 08/02/17 07:19 Resp 16 08/02/17 07:19 BP 134/58 08/02/17 07:19 Pulse Ox 97 08/02/17 07:19 Intake & Output 08/01/17 08/02/17 08/02/17 18:59 06:59 18:59 Intake Total 400 200 Output Total 0 Balance 400 200 Intake: Oral 400 200 Output: Urine 0 Other: Estimated Void Medium Large Date of Last Bowel 08/02/17 Movement # Bowel Movements 1 1 Estimated Stool Amount Medium Large # Voids 2 1 Laboratory Last Values Hgb 8.1 g/dl (12.0-16.0) L 08/01/17 08:43 Hct 24 % (35-47) L 08/01/17 08:43 Plt Count 192 10^3/ul (150-450) 07/31/17 05:57 MPV 8 um3 (7.4-10.4) 07/31/17 05:57 INR (Anticoag Therapy) 1.84 (0.77-1.02) H 07/31/17 05:57 Sodium 143 mmol/L (133-145) 07/27/17 05:10 Potassium 3.6 mmol/L (3.5-5.0) 07/27/17 05:10 Chloride 118 mmol/L (101-111) H 07/27/17 05:10 Carbon Dioxide 19 mmol/L (22-32) L 07/27/17 05:10 Anion Gap 6 mmol/L (2-11) 07/27/17 05:10 BUN 20 mg/dL (6-24) 07/27/17 05:10 Creatinine 1.23 mg/dL (0.51-0.95) H 07/27/17 05:10 Est GFR ( Amer) 54.9 (>60) 07/27/17 05:10 Est GFR (Non-Af Amer) 42.7 (>60) 07/27/17 05:10 BUN/Creatinine Ratio 16.3 (8-20) 07/27/17 05:10 Glucose 174 mg/dL (70-100) H 07/27/17 05:10 Calcium 8.3 mg/dL (8.6-10.3) L 07/27/17 05:10 Blood Type O Positive 07/31/17 05:57 Antibody Screen Negative 07/31/17 05:57 Crossmatch See Detail 07/31/17 05:57 General: Well appearing, NAD, tearful RLE: Dressing changed. Incision CDI without erythema or discharge. DP 2+. DF/PF intact BL LE: Calves supple and nontender without erythema, edema or palpable cords Assessment: []POD 7 R KIA Plan: Dispo planning, to rehab when a bed becomes available Eliquis for anticoagulation continue pain control Hold bowel regiment due to diarrhea overnight. Imodium order in if needed PT, OOB, WBAT Hip precautions <Jannet Aguilar - Last Filed: 08/02/17 09:33> - Progress Note SOAP: Subjective: Patient is frustrated that she is still in hospital with limits on how much she can ambulate as she needs supervision to ambulate. Diarrhea yesterday. Per Jannet, there was small amount of spotting on dressing with change this morning. Objective: NAD. Comfortable-appearing RLE - dressing c/d/i - NVID - Soft tissue swelling right thigh, consistent with postop edema Assessment: POD 7 right KIA for fracture Plan: - Eliquis fo4r anticoagulation - WBAT, OOB with PT or on own when safe - Dispo planning - Given the spot drainage still on dressing and the patient's chronic diarrhea , I recommended dressing on except for showering until she follows up with me in clinic at ~ 2 weeks post-op. I told the patient that she should monitor her dressing for any contamination with diarrhea. Patient acknowledged. - Bowel regimen prn - Pain control prn <Miguel Angel Pike - Last Filed: 08/02/17 12:10>
[2017-08-02] MEDS: Apixaban* 2.5 MG TAB PO SCH (09:37)
[2017-08-02] MEDS: amLODIPine TAB* 5 MG PO SCH (09:37)
[2017-08-02] MEDS: Multivitamins/Minerals TAB PO SCH (09:37)
--- NOTE | 2017-08-02 12:58 | DS ---
CC: Marivel* DATE OF ADMISSION: 07/26/2017. DATE OF DISCHARGE: 08/02/2017. DATE OF SURGERY: 07/26/2017. PROVIDER: Dr. Miguel Angel Pike* (dictated by GILDARDO Bullard). ORACLE DEVELOPER: Dr. Amberly Velarde and GILDARDO Madden. PREOPERATIVE DIAGNOSIS: Right femoral neck fracture, subacute, incipient malunion. OPERATIVE PROCEDURE: Right total hip arthroplasty for femoral neck fracture, early malunion, subacute. HISTORY: The patient is a 76-year-old woman who lives alone, walks everywhere, and does not own or operative a vehicle. She likes to bike and fell on 2016 with a right hip injury diagnosed the day of 07/05/2017. Pain in her right hip had improved some by the time she saw our orthopedic office, but was still significantly bothered with weightbearing and range of motion. HOSPITAL COURSE: The patient was admitted to [facility] on 2017. She underwent a right total hip arthroplasty for femoral neck fracture, early malunion, subacute by Dr. Pike which she tolerated well. She was transferred to the PACU and then to the Short Stay Surgical Unit in stable condition. On postop day one, her dressing was clean, dry and intact. She was able to dorsiflex and plantarflex. Dorsalis pedis and posterior tibial pulses were 2+. Calves were subtle and nontender without erythema, edema or palpable cords. On postop day two, incision was clean, dry and intact with minimal ecchymosis and edema with no surrounding erythema. Postop day three, incision is clean, dry and intact, neurovascularly intact. Postop day four, dressing was clean, dry and intact. She was able to dorsiflex and plantarflex. She was neurovascularly intact. On postop day five, the patient was appearing fatigued at this time. Her dressing was changed. Incision was clean, dry and intact. She was offered one unit of packed red blood cells. The following day, postop day six, she felt much better after receiving one unit of packed red blood cells. Her dressing was changed. Incision was clean, dry and intact without surrounding erythema or edema. 2+ dorsalis pedis pulse. Calves were subtle, nontender, without erythema, edema or palpable cords. Postop day seven, she was well-appearing, no acute distress, but she was tearful due to frustration and her dressing was changed. Incision was clean, dry and intact without erythema or discharge. Dorsalis pedis is 2+. Dorsiflexion and plantarflexion intact. She was having diarrhea for which Imodium was ordered. Vital signs on the day of discharge: Temperature 98.9, pulse rate 80, respiratory rate 16, oxygen saturation 97, blood pressure 134/58. She remained afebrile during her stay, aside from low grade temperature on July 27 of 100.3. Her vital signs remained stable throughout her stay. On 08/02/2017, she is deemed to be medically and orthopedically stable for discharge to [facility]. DISCHARGE MEDICATIONS: 1. Travatan Z 0.004% ophthalmic one drop both eyes q.p.m. 2. Centrum Silver one tab p.o. q.a.m. 3. Metoprolol Succinate 50 mg p.o. b.i.d. 4. Pletal 100 mg tab b.i.d. 5. Aspirin 81 mg p.o. q.p.m. 6. Cosopt 22.3-6.8 mg/ml one drop OP b.i.d. 7. Vitamin B12 tab 500 mcg tab take 1,000 mcg p.o. q.p.m. 8. Amlodipine 10 mg p.o. q.a.m. 9. Potassium 20 mEq p.o. b.i.d. 10. Eliquis 2.5 mg p.o. every 12 hours. 11. Imodium 2 mg p.o. as often as 4 times per day following loose bowel movements as needed. 12. Percocet 5/325 mg p.o. q.4 hours prn. 13. Percocet 5/325 mg one to two tabs p.o. q.4 hours prn, max daily dose of 8. 14. Docusate 100 mg p.o. b.i.d. prn for any constipation. DISCHARGE PLAN: Weightbearing as tolerated. Continue hip precautions. Do not cross legs. Do not bend greater than 98 degrees. Do not squat. Okay to shower , but do not submerge wound. Incision should be covered with gauze and tape aside from hygiene until follow-up visit. Call the orthopedic office with increased drainage, redness, increased pain or fever. Go to the emergency room with shortness of breath, palpitations or chest pain. The patient may consume regular diet. DVT prophylaxis is Eliquis 2.5 mg every 12 hours for four weeks. Follow-up with Dr. Pike within two weeks. Call for an appointment. Manzanita should be removed at this time. GILDARDO HOUSTON [id number]/[facility] #: [id number] [facility]
== END 2017-08-02 13:55 | DRG 470 ==
LOC: AA 07-26 12:33 → SSU 07-26 21:26
PROVIDERS: ADMIT Orthopaedic Surgery; ATTEND Orthopaedic Surgery
PROC: 0SR904A Replacement of Right Hip Joint with Ceramic on Polyethylene Synthetic Substitute, Uncemented, Open Approach (ICD-10-PCS; principal; 2017-07-26 14:00)
PROC: 30233N1 Transfusion of Nonautologous Red Blood Cells into Peripheral Vein, Percutaneous Approach (ICD-10-PCS; 2017-07-31)
DX: S72.011P Unspecified intracapsular fracture of right femur, subsequent encounter for closed fracture with malunion (principal); K91.2 Postsurgical malabsorption, not elsewhere classified; I11.9 Hypertensive heart disease without heart failure; D64.9 Anemia, unspecified; Z68.1 Body mass index [BMI] 19.9 or less, adult; W01.0XXD Fall on same level from slipping, tripping and stumbling without subsequent striking against object, subsequent encounter; I25.10 Atherosclerotic heart disease of native coronary artery without angina pectoris; K52.89 Other specified noninfective gastroenteritis and colitis; H40.9 Unspecified glaucoma; E53.8 Deficiency of other specified B group vitamins; I73.9 Peripheral vascular disease, unspecified; E78.00 Pure hypercholesterolemia, unspecified; F32.89 Other specified depressive episodes; I08.1 Rheumatic disorders of both mitral and tricuspid valves; M81.0 Age-related osteoporosis without current pathological fracture; Z79.899 Other long term (current) drug therapy; Z87.891 Personal history of nicotine dependence
CPT/HCPCS: 36415; 62323; 72170; 80048; 85014; 85018; 85049; 85610; 86850; 86900; 86901; 86922; 88305; 88311; A9270-GY; C1713; C1776; J0461; J0690; J1100; J2250; J2270; J2405; J2704; P9040

== ENCOUNTER → 2018-05-22 10:35 | Day surgery (SDC) | payer MEDICARE, MEDICAID ==
[~2018-05-22 10:35] MED LIST: Heparin 2 UNITS/ML IVPREMIX* 2,000 ML IV ONE; Heparin(*) 1000 UNIT/ML 10 ML VIAL CATH LAB IV ONE; Iodixanol* (CONTRAST) 320 MG/ML 100 ML SDV ONE; Lidocaine 1% INJ* 10 MG/ML 30 ML SDV ONE; Midazolam* 1 MG/ML 10 ML VIAL (10 MG) ONE; NS 0.9% 1000 ML* 1,000 ML IV SCH; VERAPAMIL 2.5 MG/ML 2 ML VIAL ** 5 mg/2 ml ONE; fentaNYL* 50 MCG/ML 2 ML VIAL (100 MCG VIAL) ONE; nitroGLYCERIN DRIP* 25,000 MCG/250 ML BTL ONE
[2018-05-22 14:44] VITALS: BP 122/64
--- NOTE | 2018-05-23 00:11 | CATH ---
CC: Dr. Oliveira; Dr. Huffman * CATH REPORT: DATE OF PROCEDURE: 05/22/18 - [facility] CATH REFERRING PHYSICIAN: Dr. Oliveira. PRIMARY CARE PHYSICIAN: Dr. Huffman. PROCEDURE: Right radial artery access with ultrasound assistance, bilateral selective coronary angiography, left heart catheterization. HISTORY: A 77-year-old woman with syncopal episode 2 months ago, with subsequent stress imaging study, which showed a moderate inferior reversible defect consistent with ischemia, intermediate risk. She has no exertional angina or dyspnea, but is relatively sedentary. PROCEDURE ACCESS: Right radial artery sheath 6F slender with ultrasound assistance. MEDICATIONS: 1. Subcu lidocaine. 2. IV Versed. 3. IV fentanyl. 4. Heparin 3000 units. 5. Verapamil 3 mg. 6. Nitroglycerin 300 mcg IA. COMPLICATIONS: After the infiltration of local anesthetic, she developed a small venous hematoma, which was resolved with manual compression for a few minutes. I expect, however, that she will develop a bruise over the wrist. HEMODYNAMICS: Initial AO 102/56, post angiography LV 126/3-22. On pullback, there is fling in the catheter in the left ventricle, with at most a 5 mm or less peak-to- peak aortic valve gradient. ANGIOGRAPHY: Right antecubital fossa. There was some resistance to the J-wire, imaging showed no stenosis or loop, this was easily traversed with a Wholey wire. RCA. The RCA is small, not dominant, supplies an RV branch. With engagement of the RCA, the first puff created a stain around the right coronary ostium without sequelae or symptoms. This subsequently remained stable. Left main. The left main is normal in size and length, has no stenosis. LAD. The LAD has proximal calcification, but no significant stenosis, the mid LAD has a 30% stenosis, actually improved compared to 2006. The LAD wraps around the apex. Circumflex. The circumflex is large, dominant with a moderate first and second marginal, a small posterolateral branch and ends with a moderate circumflex PDA. The circumflex has no stenosis. CONCLUSION: 1. No significant obstructive coronary disease, false positive nuclear imaging study. 2. 5-mm or less aortic valve gradient on pullback. 3. Successful right radial artery access with a very shallow radial artery, procedure accompanied by a small venous hematoma, likely will result in bruising. 4. LV gram not done because of reduced GFR. [id number]/[facility] #: [id number] [facility]
== END | disposition home or self-care (01) ==
LOC: CHICATH 10:35
PROVIDERS: ATTEND Internal Medicine Cardiovascular Disease
DX: I25.10 Atherosclerotic heart disease of native coronary artery without angina pectoris (principal); Z79.82 Long term (current) use of aspirin; Z79.899 Other long term (current) drug therapy; Z87.891 Personal history of nicotine dependence
CPT/HCPCS: 93458; 99156; J1644; J2250; J3010

== ENCOUNTER 2019-09-25 08:34 | Day surgery (SDC) | payer MEDICARE, MEDICAID ==
[~2019-09-25 08:34] MED LIST changes: +Acetaminophen TAB* 325 MG PO PRN; +Buffered Lidocaine 1% SYRIN* 1 ML/SYRINGE INTRADERM ONE; -Heparin 2 UNITS/ML IVPREMIX* 2,000 ML IV ONE; -Heparin(*) 1000 UNIT/ML 10 ML VIAL CATH LAB IV ONE; -Iodixanol* (CONTRAST) 320 MG/ML 100 ML SDV ONE; -Lidocaine 1% INJ* 10 MG/ML 30 ML SDV ONE; -Midazolam* 1 MG/ML 10 ML VIAL (10 MG) ONE; -NS 0.9% 1000 ML* 1,000 ML IV SCH; -VERAPAMIL 2.5 MG/ML 2 ML VIAL ** 5 mg/2 ml ONE; -fentaNYL* 50 MCG/ML 2 ML VIAL (100 MCG VIAL) ONE; +mitoMYcin PWD* 0.2 MG in Sterile Water for Inj* 1 ML OPHTHALMIC SCH; -nitroGLYCERIN DRIP* 25,000 MCG/250 ML BTL ONE
[2019-09-25] MEDS ORDERED: Neomycin/Polymy/Dex OPTH.SUSP* MAXITROL 0.1% 5 ML ONE (09:15)
[2019-09-25] MEDS ORDERED: Ketorolac 0.5% OPHTH (NF) 0.5 % 5 ML BTL ONE (09:15)
[2019-09-25] MEDS ORDERED: Povidone Iodine 5% OPTH* 30 ML BTL ONE (09:15)
[2019-09-25] MEDS ORDERED: Cyclopentolate 1% OPTH.SOL* 2 ML BTL ONE (09:15)
[2019-09-25] MEDS ORDERED: Lidocaine 2% w/ EPI 1:200,000* 20 ML SDV VIAL ONE (09:15)
[2019-09-25] MEDS ORDERED: Lidocaine 1% MPF ** 5 ML VIAL ONE (09:15)
[2019-09-25] MEDS ORDERED: Phenylephrine OPHTH SOL 2.5%* 2 ML ONE (09:15)
[2019-09-25] MEDS ORDERED: Proparacaine 0.5% OPHTH.SOL* 15 ML BTL ONE (09:15)
[2019-09-25] MEDS ORDERED: acetaZOLAMIDE TAB* 250 MG ONE (09:15)
[2019-09-25] MEDS ORDERED: Midazolam* 1 MG/ML 2 ML VIAL (2 MG) ONE (10:05)
[2019-09-25] MEDS ORDERED: fentaNYL* 50 MCG/ML 2 ML VIAL (100 MCG VIAL) ONE (10:37)
[2019-09-25 11:22] VITALS: BP 113/50
--- NOTE | 2019-09-25 17:16 | OP ---
OPERATIVE REPORT: DATE OF OPERATION: 09/25/19 - OTIS DATE OF : 44 SURGEON: Bakair Dasilva MD ANESTHESIA: Local with MAC. PRE-OP DIAGNOSIS: Glaucoma, right eye. POST-OP DIAGNOSIS: Glaucoma, right eye. OPERATIVE PROCEDURE: Xen stent, right eye. COMPLICATIONS: None. DESCRIPTION OF PROCEDURE: The patient was given 2% lidocaine with epinephrine. Then, lid speculum was placed. A 6-0 silk traction suture placed in the superior cornea and the eye rotated inferiorly. Marking was made 7 mm posterior to the limbus and 2 mm posterior to the limbus. Xen stent was injected subconjunctivally 7 mm posterior to the limbus and engaging the sclera 2.2 mm posterior to the limbus, inserted into the anterior chamber without difficulty using its shooter. Mitomycin-C 0.2 mg/mL, 0.2 mL was injected in the superior fornix and then the anterior chamber irrigated with balanced salt solution. Good bleb development was found. [id number]/[facility] #: [id number] [facility]
== END 2019-09-25 12:02 | disposition home or self-care (01) ==
LOC: OREAST 08:34
PROVIDERS: ATTEND Specialist
DX: H40.1133 Primary open-angle glaucoma, bilateral, severe stage (principal); H53.121 Transient visual loss, right eye; M15.0 Primary generalized (osteo)arthritis; I10 Essential (primary) hypertension; M81.0 Age-related osteoporosis without current pathological fracture; I25.10 Atherosclerotic heart disease of native coronary artery without angina pectoris; I25.2 Old myocardial infarction; R55 Syncope and collapse
CPT/HCPCS: A9270-GY; C1725; J2250; J3010; J9280

== ENCOUNTER 2021-08-18 15:46 | Observation (INO) ==
[2021-08-18 17:20] LABS: ABS Basophils 0.1 10^3/ul (0-0.2); ABS Eosinophils 0.3 10^3/ul (0-0.6); ABS Lymphocytes 1.2 10^3/ul (1.0-4.8); ABS Monocytes 0.5 10^3/ul (0-0.8); ABS Neutrophils 5.6 10^3/ul (1.5-7.7); Eosinophil % 3.3 %; Hematocrit 38 % (35-47); Hemoglobin 12.5 g/dL (12.0-16.0); Lymphocyte % 15.7 %; Mean Corpuscular HGB Conc 34 g/dL (31-36); Mean Corpuscular Hemoglobin 33 pg (27-31); Mean Corpuscular Volume 98 fL (80-97); Mean Platelet Volume 8.3 fL (7.4-10.4); Nucleated Red Blood Cells % 0.1; Platelet Count 254 10^3/uL (150-450); Red Blood Count 3.82 10^6 /uL (3.70-4.87); Red Cell Distribution Width 13 % (10-15); White Blood Count 7.6 10^3/uL (3.5-10.8)
[2021-08-18 17:40] LABS: Albumin 4.2 g/dL (3.2-5.2); Calcium 8.9 mg/dL (8.6-10.3); Total Protein 7.1 g/dL (6.4-8.9); eGFR CKD-EPI 27.6 (>60)
[2021-08-18 17:41] LABS: Albumin/Globulin Ratio 1.4 (1-3); C Reactive Protein 3.22 mg/L (<8.01); Globulin 2.9 g/dL (2-4); Total Bilirubin 0.5 mg/dL (0.2-1.0)
[2021-08-18 21:26] LABS: Troponin I 0.01 ng/mL (<0.03)
[2021-08-18 22:31] LABS: TSH Ultra Thyroid Stim Horm 2.93 mcIU/mL (0.34-5.60)
[2021-08-18] MEDS ORDERED: Lactated Ringers 1000 ml BAG 1,000 ML IV ONE (23:38)
[2021-08-19 00:05] LABS: Urine Appearance Clear; Urine Bilirubin Negative (Negative); Urine Blood Negative (Negative); Urine Color Yellow; Urine Glucose Negative (Negative); Urine Ketones Negative (Negative); Urine Nitrite Negative (Negative); Urine Protein Negative (Negative); Urine Specific Gravity 1.012 (1.002-1.030); Urine Urobilinogen Negative (Negative)
[2021-08-19 00:09] LABS: Urine Creatinine Concentration 44.69 mg/dL
[2021-08-19 01:38] LABS: Activated Partial Thrombo Time 32.1 seconds (26.0-38.0); INR 1.37 (0.86-1.15)
[2021-08-19 05:40] LABS: ABS Eosinophils 0.2 10^3/ul (0-0.6); ABS Lymphocytes 1.2 10^3/ul (1.0-4.8); ABS Monocytes 0.5 10^3/ul (0-0.8); ABS Neutrophils 3.3 10^3/ul (1.5-7.7); Eosinophil % 4.1 %; Hematocrit 34 % (35-47); Hemoglobin 11.5 g/dL (12.0-16.0); Lymphocyte % 23.1 %; Mean Corpuscular HGB Conc 34 g/dL (31-36); Mean Corpuscular Hemoglobin 33 pg (27-31); Mean Corpuscular Volume 98 fL (80-97); Mean Platelet Volume 8.3 fL (7.4-10.4); Platelet Count 205 10^3/uL (150-450); Red Blood Count 3.46 10^6 /uL (3.70-4.87); Red Cell Distribution Width 13 % (10-15); White Blood Count 5.3 10^3/uL (3.5-10.8)
[2021-08-19] MEDS: Heparin 5000 UNITS/ML 1 mL VIAL SUBCUT SCH ×3 (05:56→21:35)
[2021-08-19 05:58] LABS: Calcium 8.6 mg/dL (8.6-10.3); Potassium 3.5 mmol/L (3.5-5.0); eGFR CKD-EPI 30.9 (>60)
[2021-08-19] MEDS: Potassium Chlor 20 meq TAB.ER PO SCH ×2 (08:18→21:35)
[2021-08-19] MEDS: Aspirin EC 81 mg TAB.EC (enteric coated) PO SCH (08:18)
[2021-08-19] MEDS: Dorzolamide/Timolol OPTH (NF) 10 ML BOT BOTH EYES SCH ×3 (08:19→21:36)
[2021-08-19] MEDS ORDERED: Latanoprost 0.005% 2.5 ml BTL BOTH EYES SCH (21:00)
[2021-08-19] MEDS: Calcium Carb (TUMS) 500 mg CHEW TAB PO SCH (21:36)
[2021-08-20] MEDS: Heparin 5000 UNITS/ML 1 mL VIAL SUBCUT SCH ×2 (06:04→16:56)
[2021-08-20 06:26] LABS: ABS Eosinophils 0.2 10^3/ul (0-0.6); ABS Lymphocytes 1.4 10^3/ul (1.0-4.8); ABS Monocytes 0.5 10^3/ul (0-0.8); ABS Neutrophils 3.1 10^3/ul (1.5-7.7); Eosinophil % 3.8 %; Hematocrit 33 % (35-47); Hemoglobin 11.1 g/dL (12.0-16.0); Lymphocyte % 26.2 %; Mean Corpuscular HGB Conc 34 g/dL (31-36); Mean Corpuscular Hemoglobin 33 pg (27-31); Mean Corpuscular Volume 98 fL (80-97); Mean Platelet Volume 8.6 fL (7.4-10.4); Platelet Count 214 10^3/uL (150-450); Red Blood Count 3.34 10^6 /uL (3.70-4.87); Red Cell Distribution Width 13 % (10-15); White Blood Count 5.3 10^3/uL (3.5-10.8)
[2021-08-20 06:43] LABS: Calcium 8.6 mg/dL (8.6-10.3); Magnesium 1.6 mg/dL (1.9-2.7); Potassium 3.2 mmol/L (3.5-5.0); eGFR CKD-EPI 32.6 (>60)
[2021-08-20] MEDS ORDERED: Magnesium Sulfate 2 gm BAG 2 GM/50 ML BAG IVPB ONE (07:41)
[2021-08-20] MEDS ORDERED: Potassium Chlor 20 meq TAB.ER PO ONE (07:41)
[2021-08-20] MEDS: Aspirin EC 81 mg TAB.EC (enteric coated) PO SCH (08:21)
[2021-08-20] MEDS: Calcium Carb (TUMS) 500 mg CHEW TAB PO SCH ×2 (08:21→16:55)
[2021-08-20] MEDS: Dorzolamide/Timolol OPTH (NF) 10 ML BOT BOTH EYES SCH (08:22)
[2021-08-20] MEDS: Potassium Chlor 20 meq TAB.ER PO SCH (08:22)
[2021-08-20] MEDS: KCL 20 MEQ/100 ML IVPREMIX 20 MEQ/100 ML BAG IV SCH ×2 (11:41→13:59)
[2021-08-20 16:20] VITALS: BP 115/59
== END 2021-08-20 19:32 | disposition home or self-care (01) ==
LOC: EDHOLD 15:46 → ED 15:46 → SUATTDRO 08-19 00:15 → SSU 08-19 02:00
PROVIDERS: ADMIT Internal Medicine; ATTEND Student in an Organized Health Care Education/Training Program

== ENCOUNTER 2024-01-15 11:40 | Inpatient (IN) ==
[2024-01-15 13:08] LABS: Hematocrit 37.3 % (35-45); Hemoglobin 12.4 g/dL (11.5-14.3); Mean Corpuscular Hemoglobin 31.3 pg (27-33); Mean Corpuscular Hgb Conc 33.4 g/dL (31-36); Mean Corpuscular Volume 93.9 fL (80-97); Mean Platelet Volume 10.4 fL (7.5-11.2); Platelet Count 94 10^3/uL (150-450); Red Blood Count 3.97 10^6/uL (3.63-4.92); Red Cell Distribution Width 13.2 % (12-17); White Blood Count 6.3 10^3/uL (3.8-11.8)
[2024-01-15] MEDS: NS 0.9% 1000 ml BAG 1,000 ML IV ONE ×2 (13:29→17:34)
[2024-01-15] MEDS: NS 0.9% 500 ml BAG 500 ML IV ONE (13:45)
[2024-01-15] MEDS: Ondansetron 4 mg VIAL 2 MG/ML 2 ml VIAL IV ONE (13:48)
[2024-01-15 14:45] LABS: Albumin 3.4 g/dL (3.2-5.2); Albumin/Globulin Ratio 1.1 (1-3); C Reactive Protein 121.49 mg/L (<8.01); Creatinine, Serum 1.72 mg/dL (0.51-0.95); Globulin 3.1 g/dL (2-4); Magnesium 1.3 mg/dL (1.9-2.7); Potassium 3.7 mmol/L (3.5-5.0); Total Protein 6.5 g/dL (6.4-8.9); eGFR CKD-EPI 29.5 (>60)
[2024-01-15 15:35] LABS: Parasites Present
[2024-01-15 15:36] LABS: ABS Basophils 0.1 10^3/uL (0.0-0.1); ABS Lymphocytes 0.8 10^3/uL (1.0-4.8); ABS Monocytes 1.2 10^3/uL (0.0-0.9); ABS Neutrophils 4.2 10^3/uL (1.5-7.6); Eosinophil % 0.3 %; Lymphocyte % 12.6 %; Nucleated Red Blood Cells % 0.1 %/100WBC (0.0-0.8)
[2024-01-15 16:38] LABS: RBC Parasite Smear POSITIVE (No Parasite)
[2024-01-15] MEDS: Iodixanol (CONTRAST) 320 MG/ML 100 ML SDV IV ONE (16:46)
[2024-01-15 17:17] LABS: Urine Appearance Turbid; Urine Bilirubin Negative (Negative); Urine Blood 2+ (Negative); Urine Color Light-Yellow; Urine Glucose Negative (Negative); Urine Ketones 1+ (Negative); Urine Nitrite 2+ (Negative); Urine Protein 1+ (>=30 mg/dL) (Negative); Urine Specific Gravity 1.014 (1.002-1.030); Urine Urobilinogen Negative (Negative); Urine pH 5.5 (5.0-8.0)
[2024-01-15] MEDS: Acetaminophen IV 1 GM/100ML 1,000 MG/100 ML BAG IV ONE (17:34)
[2024-01-15 17:35] LABS: Urine Bacteria 1+ /HPF (Absent); Urine Red Blood Cell 3+(>10/hpf) /HPF (0-Trace); Urine Squamous Epithelial Cell Present /HPF (Absent); Urine White Blood Cell 3+(>20/hpf) /HPF (0-Trace)
[2024-01-15] MEDS: Azithromycin 500 mg/250 ml NS 500 MG/250 ML BAG IVPB ONE (23:10)
[2024-01-16] MEDS: Magnesium Sulf 4 GM/100 ML IV 4,000 MG/100 ML BAG IVPB ONE (00:23)
[2024-01-16 06:27] LABS: Hematocrit 31.6 % (35-45); Hemoglobin 10.6 g/dL (11.5-14.3); Mean Corpuscular Hemoglobin 31.5 pg (27-33); Mean Corpuscular Hgb Conc 33.5 g/dL (31-36); Mean Corpuscular Volume 94.1 fL (80-97); Mean Platelet Volume 10.8 fL (7.5-11.2); Platelet Count 80 10^3/uL (150-450); Red Blood Count 3.35 10^6/uL (3.63-4.92); Red Cell Distribution Width 13.1 % (12-17); White Blood Count 4.8 10^3/uL (3.8-11.8)
[2024-01-16 06:44] LABS: ABS Lymphocytes 0.7 10^3/uL (1.0-4.8); ABS Monocytes 0.7 10^3/uL (0.0-0.9); ABS Neutrophils 3.3 10^3/uL (1.5-7.6); ABS Nucleated RBC 0.01 10^3/ul; Eosinophil % 0.2 %; Lymphocyte % 15.6 %; Nucleated Red Blood Cells % 0.2 %/100WBC (0.0-0.8); RBC Morphology Normal (Normal)
[2024-01-16 07:14] LABS: Calcium 7.2 mg/dL (8.6-10.3); Creatinine, Serum 1.28 mg/dL (0.51-0.95); Magnesium 2.6 mg/dL (1.9-2.7); Potassium 3.2 mmol/L (3.5-5.0); eGFR CKD-EPI 42.1 (>60)
[2024-01-16] MEDS: Potassium Chlor 20 meq TAB.ER PO ONE (08:24)
[2024-01-16] MEDS ORDERED: Heparin 5000 UNITS/ML 1 mL VIAL SUBCUT SCH (09:00)
[2024-01-17 06:15] LABS: Albumin 2.6 g/dL (3.2-5.2); Albumin/Globulin Ratio 1.1 (1-3); Calcium 7.2 mg/dL (8.6-10.3); Creatinine, Serum 1.18 mg/dL (0.51-0.95); Globulin 2.4 g/dL (2-4); Potassium 3.3 mmol/L (3.5-5.0); Total Bilirubin 0.8 mg/dL (0.2-1.0); eGFR CKD-EPI 46.4 (>60)
[2024-01-17 06:21] LABS: Hematocrit 29.7 % (35-45); Hemoglobin 10.3 g/dL (11.5-14.3); Mean Corpuscular Hemoglobin 32.3 pg (27-33); Mean Corpuscular Hgb Conc 34.5 g/dL (31-36); Mean Corpuscular Volume 93.7 fL (80-97); Mean Platelet Volume 10.2 fL (7.5-11.2); Platelet Count 71 10^3/uL (150-450); Red Blood Count 3.17 10^6/uL (3.63-4.92); Red Cell Distribution Width 13.4 % (12-17); White Blood Count 3.8 10^3/uL (3.8-11.8)
[2024-01-17 07:55] LABS: ABS Eosinophils 0.1 10^3/uL (0.0-0.5); ABS Lymphocytes 0.9 10^3/uL (1.0-4.8); ABS Monocytes 0.8 10^3/uL (0.0-0.9); ABS Neutrophils 2.1 10^3/uL (1.5-7.6); Eosinophil % 1.9 %; Lymphocyte % 22.3 %; Nucleated Red Blood Cells % 0.1 %/100WBC (0.0-0.8)
[2024-01-17 07:56] LABS: RBC Morphology Normal (Normal)
[2024-01-17] MEDS: KCL 20 MEQ/100 ML IVPREMIX 20 MEQ/100 ML BAG IV SCH (08:52)
[2024-01-17 12:26] LABS: Anaplasma phagocytophilum Negative (Negative); B. miyamotoi PCR, B Negative (Negative); Babesia divergens/MO-1 Negative (Negative); Babesia ducani Negative (Negative); Ehrlichia chaffeensis Negative (Negative); Ehrlichia ewingii/canis Negative (Negative); Ehrlichia muris eauclairensis Negative (Negative)
[2024-01-18 06:49] LABS: Calcium 7.7 mg/dL (8.6-10.3); Creatinine, Serum 1.26 mg/dL (0.51-0.95); Potassium 3.9 mmol/L (3.5-5.0); eGFR CKD-EPI 42.9 (>60)
[2024-01-18 08:18] LABS: Hematocrit 29.4 % (35-45); Mean Corpuscular Hemoglobin 32.1 pg (27-33); Mean Corpuscular Hgb Conc 33.9 g/dL (31-36); Mean Corpuscular Volume 94.7 fL (80-97); Mean Platelet Volume 10.7 fL (7.5-11.2); Platelet Count 81 10^3/uL (150-450); Red Cell Distribution Width 13.8 % (12-17); White Blood Count 3.9 10^3/uL (3.8-11.8)
[2024-01-18 08:33] LABS: ABS Eosinophils 0.1 10^3/uL (0.0-0.5); ABS Lymphocytes 1.2 10^3/uL (1.0-4.8); ABS Monocytes 0.6 10^3/uL (0.0-0.9); ABS Nucleated RBC 0.01 10^3/ul; Eosinophil % 2.7 %; Lymphocyte % 30.7 %; Nucleated Red Blood Cells % 0.1 %/100WBC (0.0-0.8)
[2024-01-18 08:34] LABS: Parasites Present; RBC Morphology Normal (Normal)
[2024-01-18 13:12] LABS: Rapid COVID-19 Molecular Undetected (Undetected)
[2024-01-18 15:57] LABS: IgG Immunoblot Positive (Negative); IgM Immunoblot Negative (Negative)
[2024-01-19 09:46] VITALS: BP 117/71
== END 2024-01-19 13:24 | disposition home or self-care (01) | DRG 868 ==
LOC: ED 11:40 → SUATTDRO 18:50 → EDHOLD 18:50 → MED 22:04
PROVIDERS: ADMIT Internal Medicine; ATTEND Internal Medicine